=== PATIENT | male | born 1995 | race Asian ===

== ENCOUNTER 2024-06-21 12:57 | Emergency (ER) | payer MEDICAID ==
[~2024-06-21] VITALS: Ht 177.8 cm; Wt 87.9 kg
[2024-06-21 14:01] VITALS: BP 113/72; PULSE 72; RESP 18; O2SAT 98
[2024-06-21 15:15] VITALS: TEMP 98.1
== END 2024-06-21 15:19 | disposition home or self-care (01) ==
LOC: ER 12:59
DX: S93.401A Sprain of unspecified ligament of right ankle, initial encounter (principal); X58.XXXA Exposure to other specified factors, initial encounter; Y93.67 Activity, basketball; Y92.89 Other specified places as the place of occurrence of the external cause; Y99.8 Other external cause status
CPT/HCPCS: 73610; 73630; 99284; A6449

== ENCOUNTER 2024-07-16 13:48 | Emergency (ER) | payer MEDICAID ==
[~2024-07-16] VITALS: Ht 180.3 cm; Wt 89.3 kg
[2024-07-16 14:15] LABS: BILIRUBIN,URINE NEGATIVE (Neg); CLARITY,URINE CLEAR (Clear); COLOR,URINE STRAW (Yellow); GLUCOSE, URINE NEGATIVE (Neg); KETONES,URINE NEGATIVE (Neg); LEUKOCYTE ESTERASE ,URINE NEGATIVE (Neg); NITRITES, URINE NEGATIVE (Neg); OCCULT BLOOD,URINE NEGATIVE (Neg); PH,URINE 6.5 (4.8-8.0); PROTEIN,URINE NEGATIVE (Neg); UROBILINOGEN,URINE 0.2 E.U/dL (0.2-1.0)
[2024-07-16 14:18] LABS: UA COLLECTION TYPE CLN CATCH MIDSTREAM
[2024-07-16 14:48] VITALS: BP 136/81; PULSE 81; RESP 14; TEMP 98.6; O2SAT 98
== END 2024-07-16 14:50 | disposition home or self-care (01) ==
LOC: ER 13:50
DX: Z00.00 Encounter for general adult medical examination without abnormal findings (principal)
CPT/HCPCS: 81003; 99283